=== PATIENT | female | born 1945 | race Asian ===

== ENCOUNTER 2023-05-05 13:34 | Emergency (ER) | payer MEDICARE, OTHER ==
[~2023-05-05] VITALS: Ht 154.9 cm; Wt 60.5 kg
[~2023-05-05 13:34] MED LIST: AMLO-258 PO; ASPI-556 PO; CALC-590 PO; FISH1CAP27 PO; MVI; PRAV10TA2 PO; VIT500TA PO
[2023-05-05 13:55] VITALS: TEMP 98.1
[2023-05-05] MEDS ORDERED: SODIUM CHLORIDE 0.9% 1,000 ML IV ONE (14:45)
[2023-05-05 15:30] LABS: BASOPHILS % (AUTO) 0.1 % (0.0-2.0); EOSINOPHILS % (AUTO) 0.3 % (1.0-6.0); HEMATOCRIT 25.3 % (36-46); HEMOGLOBIN 8.4 g/dL (12.0-16.0); LYMPHOCYTES # (AUTO) 0.4 K/uL (1.0-4.8); LYMPHOCYTES % (AUTO) 5.8 % (22.0-44.0); MEAN CORPUSCULAR HEMOGLOBIN 32.5 pg (26.0-34.0); MEAN CORPUSCULAR HGB CONC 33.3 G/dL (31.0-37.0); MEAN CORPUSCULAR VOLUME 98 fL (80-100); MONOCYTES # (AUTO) 0.3 K/uL (0.1-1.0); MONOCYTES % (AUTO) 4.4 % (2.0-9.0); NEUTROPHILS # (AUTO) 6.6 K/uL (1.8-7.7); NEUTROPHILS % (AUTO) 89.4 % (40.0-70.0); PLATELET COUNT (AUTO) 261 K/uL (150-450); RED BLOOD CELL COUNT(AUTO) 2.59 MIL/uL (4.00-5.20); RED CELL DISTRIBUTION WIDTH 13.4 % (11.5-14.5)
[2023-05-05 15:37] LABS: CREATININE 1.03 mg/dL (0.60-1.30); POTASSIUM 3.9 mmol/L (3.5-5.1)
[2023-05-05 15:59] VITALS: BP 117/57; PULSE 77; RESP 18
== END 2023-05-05 16:32 | disposition home or self-care (01) ==
LOC: EMS 13:41
DX: D64.9 Anemia, unspecified (principal); R55 Syncope and collapse; I10 Essential (primary) hypertension; Z98.51 Tubal ligation status
CPT/HCPCS: 99284; 80048; 85025; 36415; 93005; J7030

== ENCOUNTER 2025-08-07 09:55 | Observation (INO) | payer MEDICARE, OTHER ==
[~2025-08-07] VITALS: Ht 154.9 cm; Wt 58.4 kg
[~2025-08-07 09:55] MED LIST changes: +PRAV10 PO; -PRAV10TA2 PO
[2025-08-07 10:42] LABS: PLATELET COUNT (AUTO) 267 K/uL (150-450); RED BLOOD CELL COUNT(AUTO) 2.86 MIL/uL (4.00-5.20); RED CELL DISTRIBUTION WIDTH 16.9 % (11.5-14.5); WHITE BLOOD COUNT (AUTO) 4.6 K/uL (4.5-11.0)
[2025-08-07] MEDS: ACETAMINOPHEN 500 MG TABLET PO ONE (10:43)
[2025-08-07] MEDS: SODIUM CHLORIDE 0.9% 1,000 ML IV ONE (10:43)
[2025-08-07 10:52] LABS: CALCIUM, TOTAL 8.6 mg/dL (8.8-10.5); CREATININE 0.92 mg/dL (0.60-1.30); GLOMERULAR FILTR. RATE CALC 58 mL/min (>60); GLUCOSE,RANDOM 128 mg/dL (70-110); SODIUM SERUM 144 mmol/L (136-145); UREA NITROGEN, BLOOD 29 mg/dL (7-18)
[2025-08-07 10:54] LABS: TROPONIN I-HIGH SENSITIVITY 59 ng/L (<51)
[2025-08-07 11:21] LABS: APPEARANCE,URINE CLEAR (CLEAR); GLUCOSE, URINE (UA) NEGATIVE (NEGATIVE); LEUKOCYTE ESTERASE ,URINE NEGATIVE (NEGATIVE); NITRATE,URINE NEGATIVE (NEGATIVE); OCCULT BLOOD,URINE NEGATIVE (NEGATIVE); SPECIFIC GRAVITIY, URINE 1.020 (1.003-1.030)
[2025-08-07] MEDS: ASPIRIN 325 MG TABLET PO ONE (12:22)
[2025-08-07 13:13] LABS: % IRON SATURATION 5.9 % (22-44); IRON, SERUM 20.0 mcg/dL (50-175)
[2025-08-07 16:00] VITALS: BP 125/56; PULSE 78; RESP 18; TEMP 97.9; O2SAT 100
[2025-08-07] MEDS ORDERED: LOSA-381 PO (16:32)
[2025-08-07] MEDS ORDERED: PRAV10TA37 PO (18:21)
[2025-08-07] MEDS ORDERED: AMLO-258 PO (18:21)
[2025-08-07] MEDS ORDERED: ALBUTEROL SULFATE 2.5 MG/0.5 ML NEB SOLUTION NEB PRN (18:30)
[2025-08-07] MEDS ORDERED: ACETAMINOPHEN 325 MG TABLET PO PRN (18:30)
[2025-08-07] MEDS ORDERED: MAGNESIUM HYDROXIDE SUSPENSION 30 ML UDCUP PO PRN (18:30)
[2025-08-07] MEDS ORDERED: HYDROCODONE/ACETAMINOPHEN 5-325 MG TABLET PO PRN (18:30)
[2025-08-07] MEDS ORDERED: ZOLPIDEM TARTRATE 5 MG TABLET PO PRN (18:30)
[2025-08-07] MEDS ORDERED: MORPHINE SULFATE 4 MG/ML SYRINGE IVP PRN (18:30)
[2025-08-07] MEDS ORDERED: ONDANSETRON HCL 4 MG/2 ML VIAL IVP PRN (18:30)
[2025-08-07] MEDS ORDERED: IPRATROPIUM BROMIDE 0.5 MG/2.5 ML NEB SOLUTION NEB PRN (18:30)
[2025-08-07] MEDS ORDERED: BISACODYL 10 MG RECTAL RECTAL SUPPOSITORY PR PRN (18:30)
[2025-08-07 19:06] LABS: TROPONIN I-HIGH SENSITIVITY 72 ng/L (<51)
[2025-08-07 19:36] VITALS: BP 135/62; PULSE 80; RESP 18; TEMP 98.1; O2SAT 98
[2025-08-07] MEDS ORDERED: SODIUM CHLORIDE 0.9% 500 ML IV ONE (20:19)
[2025-08-07] MEDS: IRON DEXTRAN COMPLEX 100 MG in SODIUM CHLORIDE 0.9% 100 ML IV SCH (20:44)
[2025-08-07] MEDS: DOCUSATE SODIUM 100 MG CAPSULE PO SCH (20:46)
[2025-08-08] MEDS: HEPARIN SODIUM,PORCINE 5,000 UNITS/ML VIAL SQ SCH (00:18)
[2025-08-08 00:23] VITALS: BP 132/51; PULSE 63; RESP 20; TEMP 97.9; O2SAT 98
[2025-08-08 04:00] VITALS: BP 126/68; PULSE 66; RESP 18; TEMP 98.2; O2SAT 98
[2025-08-08 06:15] LABS: PLATELET COUNT (AUTO) 268 K/uL (150-450); RED BLOOD CELL COUNT(AUTO) 3.16 MIL/uL (4.00-5.20); RED CELL DISTRIBUTION WIDTH 16.9 % (11.5-14.5); WHITE BLOOD COUNT (AUTO) 4.9 K/uL (4.5-11.0)
[2025-08-08 06:22] LABS: CALCIUM, TOTAL 8.6 mg/dL (8.8-10.5); CREATININE 0.62 mg/dL (0.60-1.30); GLOMERULAR FILTR. RATE CALC > 60 mL/min (>60); GLUCOSE,RANDOM 97 mg/dL (70-110); SODIUM SERUM 139 mmol/L (136-145); UREA NITROGEN, BLOOD 16 mg/dL (7-18)
[2025-08-08 06:25] LABS: TROPONIN I-HIGH SENSITIVITY 74 ng/L (<51)
[2025-08-08 07:25] VITALS: BP 137/60; PULSE 68; RESP 17; TEMP 97.7; O2SAT 97
[2025-08-08] MEDS: ASPIRIN 81 MG DR TABLET PO SCH (08:16)
[2025-08-08] MEDS: PANTOPRAZOLE SODIUM 40 MG/VIAL IVP SCH (08:17)
[2025-08-08] MEDS: LOSARTAN POTASSIUM 25 MG TABLET PO SCH (08:17)
[2025-08-08] MEDS: PRAVASTATIN SODIUM 10 MG TABLET PO SCH (08:17)
[2025-08-08 11:47] VITALS: BP 129/89; PULSE 72; RESP 17; TEMP 98.4; O2SAT 97
[2025-08-08] MEDS ORDERED: DOCU-385 PO (12:14)
[2025-08-08] MEDS ORDERED: PRAV10 PO (12:14)
[2025-08-08] MEDS ORDERED: AEC81 PO (12:14)
[2025-08-08] MEDS ORDERED: LOSA-417 PO (12:14)
[2025-08-08] MEDS ORDERED: FERR-82 PO (12:14)
[2025-08-08] MEDS ORDERED: AMLO-258 PO (12:14)
[2025-08-08 15:44] VITALS: BP 126/64; PULSE 83; RESP 18; TEMP 97.9; O2SAT 98
[2025-08-08 16:01] LABS: TROPONIN I-HIGH SENSITIVITY 78 ng/L (<51)
== END 2025-08-08 15:25 | disposition home or self-care (01) ==
LOC: EMS 09:55 → EDH 11:46 → INTOOBSV 11:46 → 5N 15:27
PROVIDERS: ADMIT Hospitalist; ATTEND Hospitalist
DX: R55 Syncope and collapse (principal); D64.9 Anemia, unspecified; I10 Essential (primary) hypertension; E78.00 Pure hypercholesterolemia, unspecified; G90.89 Other disorders of autonomic nervous system; Z79.899 Other long term (current) drug therapy; Z98.890 Other specified postprocedural states; Z98.51 Tubal ligation status
CPT/HCPCS: 99219 ×2; 80048 ×2; 81003; 83540; 83550; 84443; 84484 ×2; 85025 ×2; 36415 ×2; 71045; 70450; 99285; 93005; 96360; 93306; 93880; 97163; 97116; J1750; J1644 ×2; J7030; J7050; J7040; J2470; 96365; 96372; 96375